=== PATIENT | male | born 1995 | race Caucasian/White ===

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

== ENCOUNTER 2017-11-09 13:40 | Emergency (ER) | payer BC, OTHER ==
[2017-11-09 14:22] VITALS: BP 120/80
--- NOTE | 2017-11-09 15:01 | UC ---
Hand/Wrist HPI - HPI Summary HPI Summary: Dislocated right index PIP during a football game yesterday. Got it relocated and has kalina taped. - History Of Current Complaint Chief Complaint: UCUpperExtremity Stated Complaint: RIGHT INDEX FINGER INJURY Time Seen by Provider: 11/09/17 14:43 Hx Obtained From: Patient Onset/Duration: Sudden Onset, Lasting Days - 1, Lasting Weeks Severity Initially: Severe Severity Currently: None Pain Intensity: 0 Character Of Pain: Sharp, Dull Aggravating Factor(s): Movement, Flexion Alleviating Factor(s): Other - kalina tape Associated Signs And Symptoms: Positive: Swelling, Bruising Related History: Dominant Hand Right - Allergies/Home Medications Allergies/Adverse Reactions: Allergies Allergy/AdvReac Type Severity Reaction Status Date / Time No Known Allergies Allergy Verified 11/09/17 14:14 PMH/Surg Hx/FS Hx/Imm Hx Respiratory History: Asthma - Surgical History Surgical History: None - Family History Known Family History: Positive: Other - no skeletal disorders Negative: Cardiac Disease, Hypertension - Social History Occupation: Student Lives: Dormitory/Roommates Alcohol Use: Occasionally Substance Use Type: None Smoking Status (MU): Never Smoked Tobacco - Immunization History Most Recent Influenza Vaccination: none Most Recent Tetanus Shot: UTD Review of Systems Musculoskeletal: Arthralgia - right index finger Is Patient Immunocompromised?: No All Other Systems Reviewed And Are Negative: Yes Physical Exam Triage Information Reviewed: Yes Appearance: Well-Appearing, No Pain Distress, Well-Nourished Vital Signs: Initial Vital Signs Temp 98 F 11/09/17 14:14 Pulse 59 11/09/17 14:14 Resp 16 11/09/17 14:14 BP 120/80 11/09/17 14:14 Pulse Ox 99 11/09/17 14:14 Vital Signs Reviewed: Yes Eyes: Positive: Conjunctiva Clear Neck exam: Normal Respiratory Exam: Normal Cardiovascular Exam: Normal Musculoskeletal: Positive: ROM Limited @ - right index PIP, Other: - bruising borrero PIP Neurological Exam: Normal Psychological Exam: Normal Skin Exam: Normal Diagnostics - Radiology No standard instances Xray Interpretation: No Acute Changes Radiology Interpretation Completed By: ED Physician Hand/Wrist Course/Dx - Differential Dx/Diagnosis Differential Diagnosis/HQI/PQRI: Fracture, Sprain, Strain Provider Diagnoses: Sprain right index PIP joint Discharge - Sign-Out/Discharge Documenting (check all that apply): Patient Departure All imaging exams completed and their final reports reviewed: No - Discharge Plan Condition: Stable Disposition: HOME Patient Education Materials: Finger Sprain (ED) Referrals: No Primary Care Phys,NOPCP [Primary Care Provider] - Additional Instructions: Kalina tape for support. Ice for 48 hours and limit contact as it heals. - Billing Disposition and Condition Condition: STABLE Disposition: Home
--- NOTE | 2017-11-09 15:09 | RAD ---
INDICATION: Reported dislocation and subsequently reduced right index finger proximal interphalangeal joint COMPARISON: None. TECHNIQUE: 3 views of the right index finger were obtained. FINDINGS: The bones are normal alignment. Joint spaces appear maintained. No fracture is seen. IMPRESSION: NO EVIDENCE FOR FRACTURE, IF THE PATIENT'S SYMPTOMS PERSIST RECOMMEND FOLLOW-UP IMAGING.
--- NOTE | 2017-11-10 07:14 | UC ---
- Progress Note Progress Note: Patient Name: IMER ARBOLEDA Medical Record#: [id number] Ordering Physician: Scot Cunningham MD Acct.#: [id number] : 1995 Age: 22 Sex: M Location: [facility] Exam Date: 11/09/17 1451 ADM Status: REG ER Order Information: FINGER RIGHT 2ND (INDEX) Accession Number: [id number] CPT: 66150 INDICATION: Reported dislocation and subsequently reduced right index finger proximal interphalangeal joint COMPARISON: None. TECHNIQUE: 3 views of the right index finger were obtained. FINDINGS: The bones are normal alignment. Joint spaces appear maintained. No fracture is seen. IMPRESSION: NO EVIDENCE FOR FRACTURE, IF THE PATIENT'S SYMPTOMS PERSIST RECOMMEND FOLLOW-UP IMAGING. <Electronically signed by Khang Alvarez MD in OV> 11/09/17 1506 Dictated By: Khang Alvarez MD Dictated Date/Time: 11/09/17 1506 Transcribed Date/Time: 11/09/17 1505 Copy to: CC:Scot Cunningham MD; No Primary Care Phys,NOPCP Imaging - [facility] Imaging [facility] [place] [facility] [address] [address] ph ([phone]) ph ([phone]) ph ([phone]) This report is only to be considered final once signed by the Provider(s) as displayed in the "<Electronically Signed by >" field (s). Absence of a signature indicates the report is in a draft status and still needs to be finalized. In the event this document was created by someone other than the signing Provider, the individual initiating the document will be listed in the "Entered by:" or "Dictated by:" jolly. 1 of 1 Discharge - Sign-Out/Discharge Documenting (check all that apply): Post-Discharge Follow Up All imaging exams completed and their final reports reviewed: Yes - Discharge Plan Condition: Stable Disposition: HOME Patient Education Materials: Finger Sprain (ED) Referrals: No Primary Care Phys,NOPCP [Primary Care Provider] - Additional Instructions: Macho tape for support. Ice for 48 hours and limit contact as it heals. - Billing Disposition and Condition Condition: STABLE Disposition: Home
== END 2017-11-09 15:18 | disposition home or self-care (01) ==
LOC: UCCORT 13:40
DX: S63.630A Sprain of interphalangeal joint of right index finger, initial encounter (principal); X58.XXXA Exposure to other specified factors, initial encounter; Y93.61 Activity, american tackle football; Y92.9 Unspecified place or not applicable
CPT/HCPCS: 73140; 99211; G0463